=== PATIENT | male | born 1960 | race Caucasian/White ===

== ENCOUNTER 2020-01-09 22:59 | Observation (INO) | payer OTHER, SELFPAY ==
[2020-01-09 23:10] VITALS: BP 136/75; PULSE 135; RESP 16; O2SAT 94
--- NOTE | 2020-01-09 23:10 | ED.GENADULT ---
HPI - General Adult General Chief complaint: Fever Stated complaint: had a fever at home, recent surgery on L knee Time Seen by Provider: 01/09/20 23:10 History of Present Illness HPI narrative: 59-year-old gentleman with a history of hemochromatosis presents with fevers and rigors. He had a left total knee replacement yesterday morning and was doing well until 7:00 a.m. tonight when he noted chills followed by sweats followed by a fever measured at 103.6. He has no localizing symptoms. No cough, no dyspnea, no palpitations, no abdominal pain, no flank pain, no dysuria. His left knee surgical site has a wound VAC in place with no significant erythema extending past that or up the leg. Related Data Allergies Allergy/AdvReac Type Severity Reaction Status Date / Time No Known Drug Allergies Allergy Verified 01/09/20 23:39 Review of Systems Review of Systems Narrative: Pertinent positive and negative findings as per HPI Remainder of review of systems is otherwise unremarkable for ENT: No sore throat, neck pain, ear pain CV: Chest pain, palpitations, dyspnea on exertion Respiratory: Cough, wheeze, dyspnea GI: Nausea, vomiting, diarrhea, : Dysuria, hematuria, flank pain Skin: Rashes, nonhealing lesions Neuro: Syncope, dizziness, Patient History Medical History Hemochromatosis Surgical History Knee joint replacement status Social History Smoking Status: Never smoker Exam Narrative Exam Narrative: General: Diaphoretic, Able to give a complete and coherent history. Well-nourished well-developed HEENT: Moist mucous membranes, normal sclera with reactive pupils, Neck: supple Respiratory: Lungs are clear to auscultation, no wheezing no rales no rhonchi. Full and symmetrical air movement Cardiac: Rapid but regular rate and rhythm, no murmurs no bruits Abdomen: Soft nontender good bowel tones, no flank pain Skin: Warm and dry, no rashes Neurologic: Grossly neurologically intact with no obvious asymmetries or abnormalities Extremities: Left knee with surgical dressing in place. Left leg is slightly more swollen than the right leg and entirely consistent with 36 hours postop. No increased erythema or warmth. Neurovascularly intact distal to the surgical site. Right leg is unremarkable. Psych: Cooperative, appropriate insight and affect Initial Vital Signs Initial Vital Signs: Vital Signs Pulse Rate 135 H 01/09/20 23:10 Respiratory Rate 16 01/09/20 23:10 Blood Pressure 136/75 01/09/20 23:10 Pulse Oximetry 94 01/09/20 23:10 Course Orders Ordered: ED Orders 01/09/20 23:15 Complete Blood Count AUTO DIFF Stat Comprehensive Metabolic Panel Stat Lactate (Lactic Acid) Stat Procalcitonin Stat 01/09/20 23:25 XR chest 1V Stat 01/09/20 23:30 Blood Culture Stat COVID19 Stat 01/09/20 23:35 Ictotest Urine Stat Urinalysis and Microscopic Stat Acetaminophen (Acetaminophen 325 Mg Tablet) 650 mg PO Q4HR PRN PRN Reason: Fever/Mild Pain (1-3) Piperacillin/Tazobactam/Dextrose (Zosyn) 3.375 gm in 50 mls @ 100 mls/hr IV Q8H [facility] Last Admin: 01/09/20 23:39 Dose: 100 mls/hr Documented by: DEBBIE Vancomycin HCl/Dextrose (Vancomycin) 1,500 mg in 300 mls @ 200 mls/hr IV NOW ONE Stop: 01/10/20 01:00 Last Admin: 01/10/20 00:19 Dose: 200 mls/hr Documented by: Sodium Chloride (Normal Saline 0.9%) 1,000 mls @ 100 mls/hr IV CONT ABRAHAM Ibuprofen (Ibuprofen 400 Mg Tablet) 400 mg PO Q6HR PRN PRN Reason: Fever/Mild Pain (1-3) Naloxone HCl (Naloxone 0.4 Mg/Ml Vial) 0.2 mg IV Q2MIN PRN PRN Reason: Opiate Reversal Ondansetron HCl (Ondansetron 4 Mg/2 Ml Inj) 4 mg IV Q8HR PRN PRN Reason: Nausea And Vomiting Oxycodone HCl (Oxycodone Ir 5 Mg Tablet) 5 mg PO Q6HR PRN PRN Reason: Pain, Moderate (4-6) Sennosides (Sennosides 8.6 Mg Tablet) 17.2 mg PO BEDTIME [facility] Discontinued Medications Hydroxyzine Pamoate (Hydroxyzine Pamoate 25 Mg Capsule) 25 mg PO NOW ONE Stop: 01/09/20 23:25 Last Admin: 01/09/20 23:35 Dose: 25 mg Documented by: ERICH Sodium Chloride (Normal Saline 0.9%) 1,000 mls @ 1,000 mls/hr IV BOLUS ONE Stop: 01/10/20 00:48 Last Admin: 01/09/20 23:51 Dose: 1,000 mls/hr Documented by: Ibuprofen (Ibuprofen 400 Mg Tablet) 400 mg PO NOW ONE Stop: 01/09/20 23:25 Last Admin: 01/09/20 23:35 Dose: 400 mg Documented by: ERICH Oxycodone/Acetaminophen (Oxycodone/Acetaminophen 5/325 Tablet) 2 tab PO NOW ONE Stop: 01/09/20 23:25 Last Admin: 01/09/20 23:35 Dose: 2 tab Documented by: ERICH Vital Signs Vital signs: Vital Signs - 8 hr 01/09/20 23:10 01/09/20 23:20 01/09/20 23:30 Temperature 102.8 F H Pulse Rate 135 H 142 H Respiratory Rate 16 23 Blood Pressure 136/75 Pulse Oximetry 94 95 01/09/20 23:49 01/10/20 00:00 Temperature Pulse Rate 129 H 129 H Respiratory Rate 22 19 Blood Pressure 147/74 H 143/73 H Pulse Oximetry 94 95 Medical Decision Making Medical Records Medical records reviewed: Yes I reviewed the patient's medical records. Lab Data Lab results reviewed: Yes I reviewed the patient's lab results. Result diagrams: 01/09/20 23:15 01/09/20 23:15 Labs: Lab Results 01/09/20 01/09/20 01/09/20 Range/Units 23:15 23:15 23:15 WBC 8.9 (4.5-11.0) X10^3/uL RBC 4.15 L (4.5-5.9) X10^6/uL Hgb 13.8 (13.5-17.5) g/dL Hct 40.3 L (41-53) % MCV 97.1 (80-100) fL MCH 33.2 (26-34) PG MCHC 34.2 (30-36) % RDW 13.3 (11.6-14.8) % Plt Count 159 (150-400) X10^3/uL Neut % (Auto) 92.0 H (50-75) % Lymph % (Auto) 1.6 L (25-40) % [place] % (Auto) 4.5 (3-14) % Eos % (Auto) 1.5 L (2-4) % Baso % (Auto) 0.4 (0-2) % Neut # (Auto) 8200 H (6426-2184) /uL Lymph # (Auto) 100 L (8112-9128) /uL [place] # (Auto) 400 (0-900) /uL Eos # (Auto) 100 (0-450) /uL Baso # (Auto) 0 (0-100) /uL Sodium 134 L (137-145) mmol/L Potassium 3.6 (3.4-5.1) mmol/L Chloride 104 (98-107) mmol/L Carbon Dioxide 25 (22-32) mmol/L BUN 15 (9-20) mg/dL Creatinine 1.02 (0.66-1.25) mg/dL Estimated GFR > 60.0 (>60) mL/min BUN/Creatinine Ratio 14.7 (6-22) Glucose 204 H (80-110) mg/dL Lactate (0.7-2.1) mmol/L Calcium 9.0 (8.4-10.2) mg/dL Total Bilirubin 1.0 (0.2-1.3) mg/dL AST 30 (17-59) IU/L ALT 31 (<50) IU/L Alkaline Phosphatase 64 (38-126) U/L Total Protein 7.3 (6.3-8.2) g/dL Albumin 3.9 (3.5-5.0) g/dL Globulin 3.4 (1.7-4.1) g/dL Albumin/Globulin Ratio 1.1 (1.0-2.8) Procalcitonin 0.32 (<0.5) ng/mL Urine Color Urine Appearance Urine pH (4.5-8.0) Ur Specific [place] (1.000-1.035) Urine Protein (Negative) Urine Glucose (UA) (Negative) g/dL Urine Ketones (NEGATIVE) Urine Occult Blood (Negative) Urine Nitrate (Negative) Urine Bilirubin (NEGATIVE) Ur Bilirubin Confirm (Negative) Urine Urobilinogen (0.2) E.U./dL Ur Leukocyte Esterase (NEGATIVE) Urine RBC (0-5/HPF) Urine WBC (0-5/HPF) Ur Squamous Epith Cells (0-5/HPF) Urine Bacteria (None) Hyaline Casts (None) Granular Casts (None) Urine Mucus (Negative) Ur Culture Indicated? COVID-19 PCR (Negative) 01/09/20 01/09/20 01/09/20 Range/Units 23:15 23:30 23:35 WBC (4.5-11.0) X10^3/uL RBC (4.5-5.9) X10^6/uL Hgb (13.5-17.5) g/dL Hct (41-53) % MCV (80-100) fL MCH (26-34) PG MCHC (30-36) % RDW (11.6-14.8) % Plt Count (150-400) X10^3/uL Neut % (Auto) (50-75) % Lymph % (Auto) (25-40) % [place] % (Auto) (3-14) % Eos % (Auto) (2-4) % Baso % (Auto) (0-2) % Neut # (Auto) (4757-5271) /uL Lymph # (Auto) (0077-5662) /uL [place] # (Auto) (0-900) /uL Eos # (Auto) (0-450) /uL Baso # (Auto) (0-100) /uL Sodium (137-145) mmol/L Potassium (3.4-5.1) mmol/L Chloride (98-107) mmol/L Carbon Dioxide (22-32) mmol/L BUN (9-20) mg/dL Creatinine (0.66-1.25) mg/dL Estimated GFR (>60) mL/min BUN/Creatinine Ratio (6-22) Glucose (80-110) mg/dL Lactate 1.9 (0.7-2.1) mmol/L Calcium (8.4-10.2) mg/dL Total Bilirubin (0.2-1.3) mg/dL AST (17-59) IU/L ALT (<50) IU/L Alkaline Phosphatase (38-126) U/L Total Protein (6.3-8.2) g/dL Albumin (3.5-5.0) g/dL Globulin (1.7-4.1) g/dL Albumin/Globulin Ratio (1.0-2.8) Procalcitonin (<0.5) ng/mL Urine Color [place] Urine Appearance Clear Urine pH 5.0 (4.5-8.0) Ur Specific [place] 1.025 (1.000-1.035) Urine Protein 2+ H (Negative) Urine Glucose (UA) Negative (Negative) g/dL Urine Ketones 1+ H (NEGATIVE) Urine Occult Blood Trace-lysed (Negative) Urine Nitrate Negative (Negative) Urine Bilirubin 1+ H (NEGATIVE) Ur Bilirubin Confirm Negative (Negative) Urine Urobilinogen 0.2 (0.2) E.U./dL Ur Leukocyte Esterase Negative (NEGATIVE) Urine RBC None seen (0-5/HPF) Urine WBC 1-5/hpf (0-5/HPF) Ur Squamous Epith Cells 0-1 /hpf (0-5/HPF) Urine Bacteria None seen (None) Hyaline Casts 1-5/lpf (None) Granular Casts 0-1/lpf (None) Urine Mucus 4+ H (Negative) Ur Culture Indicated? Cult not indicated COVID-19 PCR Negative (Negative) MDM Narrative Medical decision making narrative: 59-year-old gentleman with fevers and rigors now for approximately 5 hours. He is 36 hours post left knee replacement. Surgical site itself looks like it is healing nicely. Urine is unremarkable as is chest x-ray, COVID remains negative. He started on Zosyn and vancomycin after urine and blood cultures were obtained. He will be admitted to the medicine service with ortho consulting. Diagnosis of fever 36 hours postop with no identified source, no pneumonia, no atelectasis, no urinary tract infection, no antibiotics or other medications to suggest drug-related fever. In setting of total joint replacement IV antibiotics until further evaluation and source of fever can be identified will be appropriate. At this time, there is no evidence of acute sepsis. He has been taking aspirin postop for PE prevention. He is tachycardic however this is coming down with fever reduction and fluids. He has complained of no palpitations or hypoxia. It would be difficult to explain fever chills and rigors within hours of an acute PE and other symptoms are much more consistent with infection. Spoke with Dr Domínguez. Will see patient in the am. Discussed with ANDERSON Reddy hosptialist. She will review with Dr Feliz as well. Discharge Plan Departure Admit Date/Time: 01/10/20 00:27 Admit Provider: Lesa Vences
[2020-01-09 23:20] VITALS: TEMP 39.3; BMI 39.1
--- NOTE | 2020-01-09 23:25 | DI.RAD.S_ITS ---
PROCEDURE: XR CHEST 1V INDICATIONS: fever TECHNIQUE: One view of the chest was acquired. COMPARISON: [facility], CT, CT ANGIO CHEST PE PROTOCOL, 01/10/2020, 3:11. FINDINGS: Surgical changes and devices: None. Lungs and pleura: An incomplete inspiratory result is noted, causing a crowded appearance to the lung markings. No focal infiltrates are seen. No pneumothorax or significant pleural effusions are seen. Mediastinum: Mediastinal contours appear normal. Heart size is normal. Bones and chest wall: No suspicious bony lesions. Age-appropriate bony degenerative changes are seen. Overlying soft tissues appear unremarkable. IMPRESSION: Portable chest within normal limits. Dictated by: Hank Page M.D. on 01/10/2020 at 8:18 Approved by: Hank Page M.D. on 01/10/2020 at 8:19
[2020-01-09 23:30] VITALS: PULSE 142; RESP 23; O2SAT 95
[2020-01-09] MEDS: hydrOXYzine pamoate 25 MG CAPSULE PO (23:35)
[2020-01-09] MEDS: OXYCODONE/ACETAMINOPHEN 5/325 TABLET 2 TAB PO (23:35)
[2020-01-09] MEDS: IBUPROFEN 400 MG TABLET PO (23:35)
[2020-01-09 23:36] LABS: Add Manual Diff / Slide Review NO; Basophils Absolute Auto 0 /uL (0-100); Basophils Percent Auto 0.4 % (0-2); Eosinophils Absolute Auto 100 /uL (0-450); Eosinophils Percent Auto 1.5 % (2-4); Hematocrit 40.3 % (41-53); Hemoglobin 13.8 g/dL (13.5-17.5); Lymphocytes Absolute Auto 100 /uL (1100-4500); Lymphocytes Percent Auto 1.6 % (25-40); Mean Corpuscular HGB Conc 34.2 % (30-36); Mean Corpuscular Hemoglobin 33.2 PG (26-34); Mean Corpuscular Volume 97.1 fL (80-100); Monocytes Absolute Auto 400 /uL (0-900); Monocytes Percent Auto 4.5 % (3-14); Neutrophils Absolute Auto 8200 /uL (1500-7000); Platelet Count 159 X10^3/uL (150-400); Red Blood Cell Count 4.15 X10^6/uL (4.5-5.9); Red Cell Distribution Width 13.3 % (11.6-14.8); White Blood Cell Count 8.9 X10^3/uL (4.5-11.0)
[2020-01-09] MEDS: PIPERACILLIN-TAZO 3.375 GM/50 ML FROZ.PIGGY IV (23:39)
[2020-01-09 23:40] LABS: Lactate (Lactic Acid) 1.9 mmol/L (0.7-2.1)
[2020-01-09 23:41] LABS: Appearance Urine UA CLEAR; Bacteria Urine None Seen; Bilirubin Urine UA 1+ (NEGATIVE); Glucose Urine UA NEGATIVE (Negative); Ketones Urine UA 1+ (NEGATIVE); Leukocyte Esterase Urine UA NEGATIVE (NEGATIVE); Nitrite Urine UA NEGATIVE (Negative); Occult Blood Urine UA TRACE-LYSED (Negative); Protein Urine UA 2+ (Negative); RBC Urine None Seen (0-5/HPF); Specific Gravity Urine UA 1.025 (1.000-1.035); Urobilinogen Urine UA 0.2 E.U./dL (0.2)
[2020-01-09 23:42] LABS: Color Urine UA Amber
[2020-01-09 23:43] LABS: Alanine Aminotransferase 31 IU/L (<50); Albumin 3.9 g/dL (3.5-5.0); Albumin Globulin Ratio 1.1 (1.0-2.8); Alkaline Phosphatase 64 U/L (38-126); Aspartate Aminotransferase 30 IU/L (17-59); BUN Creatinine Ratio 14.7 (6-22); Blood Urea Nitrogen 15 mg/dL (9-20); Carbon Dioxide 25 mmol/L (22-32); Chloride 104 mmol/L (98-107); Estimated Glomerular Filt Rate > 60.0 mL/min (>60); Globulin 3.4 g/dL (1.7-4.1); Glucose 204 mg/dL (80-110); HEMOLYSIS < 15 (0-50); Potassium 3.6 mmol/L (3.4-5.1); Sodium 134 mmol/L (137-145); Total Protein 7.3 g/dL (6.3-8.2)
[2020-01-09 23:49] VITALS: BP 147/74; PULSE 129; RESP 22; O2SAT 94
[2020-01-09] MEDS: SODIUM CHLORIDE 0.9% 1,000 ML 1000 ML IV (23:51)
[2020-01-09 23:56] LABS: COVID19 -Nasal RAPID Negative (Negative)
[2020-01-09 23:59] LABS: Procalcitonin 0.32 ng/mL (<0.5)
[2020-01-10] VITALS: BP 143/73; PULSE 129; RESP 19; O2SAT 95
[2020-01-10 00:07] LABS: Ictotest Urine Negative (Negative); Squamous Epithelial Cell Urine 0-1 /HPF (0-5/HPF); WBC Urine 1-5/HPF (0-5/HPF)
[2020-01-10 00:09] LABS: Culture Indicated Urine Cult Not Indicated; Granular Casts Urine 0-1/LPF; Hyaline Casts Urine 1-5/LPF; Mucus Urine 4+ (Negative)
[2020-01-10] MEDS: VANCOMYCIN 1,500 MG/300 ML PIGGYBACK 200 MG IV (00:19)
[2020-01-10 00:30] VITALS: BP 146/77; PULSE 126; RESP 20; TEMP 38.2; O2SAT 95
[2020-01-10 00:33] VITALS: BMI 40.1
[2020-01-10 00:50] VITALS: BP 150/88; PULSE 115; RESP 18; TEMP 37.6; O2SAT 97
[2020-01-10 00:57] LABS: Creatine Kinase 249 U/L (55-170)
[2020-01-10 00:59] LABS: D Dimer 2149 ng/mL (<230)
--- NOTE | 2020-01-10 01:09 | PC.NURSE ---
0050 Patient transferred to unit via stretcher/bed in stable condition. The patient is alert and oriented x4. There is expected swelling and tenderness to the left knee s/p TKA. Normal saline is running at 100mL/h and Vancomycin at 200mL/h. Lung sounds are clear. Pt transferred to unit bed via [id number]. Bed alarm is on. No s/sx of distress.
[2020-01-10 01:10] LABS: Troponin I < 0.012 ng/mL (0.01-0.034)
[2020-01-10 01:14] LABS: CKMB % Relative Index 0.1 % (1.5-5.0); Creatine Kinase MB < 0.22 ng/mL (<2.37)
[2020-01-10 01:40] LABS: Erythrocyte Sedimentation Rate 22 MM/HR (0-15)
[2020-01-10 01:42] LABS: C-Reactive Protein Quant 20.8 mg/dL (<1.0)
--- NOTE | 2020-01-10 01:48 | DI.CT.S_ITS ---
PROCEDURE: CT ANGIO CHEST PE PROTOCOL INDICATIONS: elevated D-dimer TECHNIQUE: After the administration of intravenous contrast, 2 mm thick sections acquired from the pulmonary apices to the posterior costophrenic angles. 3-dimensional maximum intensity projection (MIP) coronal and sagittal reformats were then acquired through the thorax. For radiation dose reduction, the following was used: automated exposure control, adjustment of mA and/or kV according to patient size. COMPARISON: [facility], , XR CHEST 1V, 01/09/2020, 23:33. FINDINGS: Image quality: Excellent. Pulmonary arteries: Pulmonary arteries are normal in size, and demonstrate no intraluminal filling defects to suggest central pulmonary embolism. Lungs and pleura: No focal infiltrates are seen. A calcified granuloma can be seen laterally involving the left upper lobe, as on series 5, image 132. An additional calcified granuloma can be seen involving the right costophrenic angle, as on series 4, image 109. No pleural effusions or pneumothorax. Central and peripheral airways are patent. Mediastinum: Heart size is normal, without pericardial effusion. No mediastinal or hilar adenopathy. Calcified mediastinal lymph nodes are seen. Thoracic aorta is normal in caliber and enhancement. Esophagus is normal in caliber, without hiatal hernia. Bones and chest wall: No suspicious bony lesions. Age-appropriate bony degenerative changes are seen. Ribs and thoracic spine appear intact throughout. Thyroid gland demonstrates no significant abnormality. No axillary or supraclavicular adenopathy. Abdomen: Diffuse fatty liver infiltration is noted. Gallstones may be present, yet are not well seen. Calcified splenic granulomas are seen. The visualized portions of the upper abdominal structures are otherwise unremarkable for imaging technique. IMPRESSION: Negative for pulmonary embolism. Incidental note is made of: Prior granulomatous exposure. Fatty liver infiltration Potential gallstones Note: No significant discrepancy from the preliminary report. Dictated by: Hank Page M.D. on 01/10/2020 at 7:34 Approved by: Hank Page M.D. on 01/10/2020 at 7:37
--- NOTE | 2020-01-10 01:53 | PM.HP.1 ---
History of Present Illness History of Present Illness Date Patient Seen: 01/10/20 Time Patient Seen: 01:15 Chief complaint: had a fever at home, recent surgery on L knee Narrative: Jose Tapia is a 59 y.o. male with hemachromatosis who is POD#1 left total knee arthroplasty by Dr. Staton. He was uneventfully recovering at home when he developed a fever and rigors. Initially his temp was 100 degrees and when he took his temperature again, it estephania to 103. He contacted the on-call surgeon at [facility] and they instructed him to present to [place] [facility] for further evaluation. He has been adhering to an ibuprofen and tylenol and oxycodone pain control regimen and takes aspirin 81 mg po bid for anticoagulation. He denies chest pain, shortness of breath, nausea or vomiting, abdominal or inguinal pain, or calf pain. Denies a history of a blood clot. In the ED, he presented with a temperature of 102.8. Currently his temp is 99.6 there is 150/88, heart rate 115, respiratory rate 18, oxygen saturation of 97% on room air, he weighs 109.5 kg with BMI 40.1. WBC is 8.9, RBC 4.15, hemoglobin 13.8, hematocrit 40.3, platelet count 159, he does have elevated neutrophils 8200, ESR is is elevated at 22, D-dimer is elevated at 2149, sodium 134, glucose 204, lactate 1.9, liver enzymes within normal limits, total CK is 249, CK-MB is 0.1, troponin is within normal limits, CRP is 20.8, procalcitonin was 0.32, UA is negative for UTI an COVID-19 PCR is negative. He was administered a dose of IV vancomycin and pipercillin tazobactam in the ED. Patient History Medical History Hemochromatosis Surgical History Knee joint replacement status Family & Social History Family History (Updated 01/10/20 @ 02:18 by ANDERSON Leyva) Mother Tobacco use COPD (chronic obstructive pulmonary disease) Father Tobacco use CAD (coronary artery disease) Hx of heart bypass surgery COPD (chronic obstructive pulmonary disease) Brother Hemochromatosis Social History: household members spouse,children,other Prior Living Arrangements House Safety & Behavioral: Feels Safe in Current Yes Environment Been Physically Hurt or No Threatened By a Person Suicidal Ideation Description None Suicide Plan Description No Plan Tobacco & Substance use: Smoking Status Never smoker alcohol intake current, though very little X 2 months alcohol intake frequency other Substance Use Type does not use Meds Home Medications and Allergies Home Medications Medication Instructions Recorded Confirmed Type aspirin [Adult Aspirin] 81 mg PO DAILY 01/10/20 01/10/20 History ibuprofen 400 mg PO Q6H PRN 01/10/20 01/10/20 History Allergies Allergy/AdvReac Type Severity Reaction Status Date / Time No Known Drug Allergies Allergy Verified 01/09/20 23:39 Review of Systems Review of Systems ROS: Yes All systems reviewed with the patient and are negative except as otherwise documented Exam Vital Signs (past 8 hours): - 01/09/20 23:10 01/09/20 23:20 01/09/20 23:30 Temperature 102.8 F H Pulse Rate 135 H 142 H Respiratory Rate 16 23 Blood Pressure 136/75 Pulse Oximetry 94 95 01/09/20 23:49 01/10/20 00:00 01/10/20 00:30 Temperature 100.8 F H Pulse Rate 129 H 129 H 126 H Respiratory Rate 22 19 20 Blood Pressure 147/74 H 143/73 H 146/77 H Pulse Oximetry 94 95 95 01/10/20 00:50 Temperature 99.6 F Pulse Rate 115 H Respiratory Rate 18 Blood Pressure 150/88 H Pulse Oximetry 97 Oxygen Delivery Method Room Air Oxygen Flow Rate 0 Narrative Exam Narrative: Gen: Alert, oriented, morbidly obese 59 y.o. male, NAD HEENT: normocephalic, atraumatic, conjunctiva clear, sclera non-icteric, oral mucosa pink and moist Neck: supple, full ROM, no JVD, trachea is midline Resp: Lungs CTA, non-labored breathing CV: RRR, no murmur or rubs Abd: obese, distended, soft, non-tender, normoactive BTs Skin: no lesions or rashes, dry and intact Neuro: Alert and oriented X 4 w/no focal deficits. Speech clear and coherent. Extremities: left knee has a pressure dressing, no drainage seen, is ambulatory, negative Belkys?s sign Psyche: very pleasant, normal mood and affect. Objective Labs Result Diagrams: 01/09/20 23:15 01/09/20 23:15 Labs: Laboratory Results - last 24 hr 01/09/20 01/09/20 01/09/20 23:15 23:15 23:15 WBC 8.9 RBC 4.15 L Hgb 13.8 Hct 40.3 L MCV 97.1 MCH 33.2 MCHC 34.2 RDW 13.3 Plt Count 159 Neut % (Auto) 92.0 H Lymph % (Auto) 1.6 L [place] % (Auto) 4.5 Eos % (Auto) 1.5 L Baso % (Auto) 0.4 Neut # (Auto) 8200 H Lymph # (Auto) 100 L [place] # (Auto) 400 Eos # (Auto) 100 Baso # (Auto) 0 ESR D-Dimer Sodium 134 L Potassium 3.6 Chloride 104 Carbon Dioxide 25 BUN 15 Creatinine 1.02 Estimated GFR > 60.0 BUN/Creatinine Ratio 14.7 Glucose 204 H Lactate Calcium 9.0 Total Bilirubin 1.0 AST 30 ALT 31 Alkaline Phosphatase 64 Total Creatine Kinase CK-MB (CK-2) CK-MB (CK-2) Rel Index Troponin I C-Reactive Protein Total Protein 7.3 Albumin 3.9 Globulin 3.4 Albumin/Globulin Ratio 1.1 Procalcitonin 0.32 Urine Color Urine Appearance Urine pH Ur Specific [place] Urine Protein Urine Glucose (UA) Urine Ketones Urine Occult Blood Urine Nitrate Urine Bilirubin Ur Bilirubin Confirm Urine Urobilinogen Ur Leukocyte Esterase Urine RBC Urine WBC Ur Squamous Epith Cells Urine Bacteria Hyaline Casts Granular Casts Urine Mucus Ur Culture Indicated? COVID-19 PCR 01/09/20 01/09/20 01/09/20 23:15 23:15 23:15 WBC RBC Hgb Hct MCV MCH MCHC RDW Plt Count Neut % (Auto) Lymph % (Auto) [place] % (Auto) Eos % (Auto) Baso % (Auto) Neut # (Auto) Lymph # (Auto) [place] # (Auto) Eos # (Auto) Baso # (Auto) ESR D-Dimer 2149 H Sodium Potassium Chloride Carbon Dioxide BUN Creatinine Estimated GFR BUN/Creatinine Ratio Glucose Lactate 1.9 Calcium Total Bilirubin AST ALT Alkaline Phosphatase Total Creatine Kinase 249 H CK-MB (CK-2) < 0.22 CK-MB (CK-2) Rel Index 0.1 L Troponin I < 0.012 C-Reactive Protein Total Protein Albumin Globulin Albumin/Globulin Ratio Procalcitonin Urine Color Urine Appearance Urine pH Ur Specific [place] Urine Protein Urine Glucose (UA) Urine Ketones Urine Occult Blood Urine Nitrate Urine Bilirubin Ur Bilirubin Confirm Urine Urobilinogen Ur Leukocyte Esterase Urine RBC Urine WBC Ur Squamous Epith Cells Urine Bacteria Hyaline Casts Granular Casts Urine Mucus Ur Culture Indicated? COVID-19 PCR 01/09/20 01/09/20 01/09/20 23:15 23:15 23:30 WBC RBC Hgb Hct MCV MCH MCHC RDW Plt Count Neut % (Auto) Lymph % (Auto) [place] % (Auto) Eos % (Auto) Baso % (Auto) Neut # (Auto) Lymph # (Auto) [place] # (Auto) Eos # (Auto) Baso # (Auto) ESR 22 H D-Dimer Sodium Potassium Chloride Carbon Dioxide BUN Creatinine Estimated GFR BUN/Creatinine Ratio Glucose Lactate Calcium Total Bilirubin AST ALT Alkaline Phosphatase Total Creatine Kinase CK-MB (CK-2) CK-MB (CK-2) Rel Index Troponin I C-Reactive Protein 20.8 H Total Protein Albumin Globulin Albumin/Globulin Ratio Procalcitonin Urine Color Urine Appearance Urine pH Ur Specific [place] Urine Protein Urine Glucose (UA) Urine Ketones Urine Occult Blood Urine Nitrate Urine Bilirubin Ur Bilirubin Confirm Urine Urobilinogen Ur Leukocyte Esterase Urine RBC Urine WBC Ur Squamous Epith Cells Urine Bacteria Hyaline Casts Granular Casts Urine Mucus Ur Culture Indicated? COVID-19 PCR Negative 01/09/20 23:35 WBC RBC Hgb Hct MCV MCH MCHC RDW Plt Count Neut % (Auto) Lymph % (Auto) [place] % (Auto) Eos % (Auto) Baso % (Auto) Neut # (Auto) Lymph # (Auto) [place] # (Auto) Eos # (Auto) Baso # (Auto) ESR D-Dimer Sodium Potassium Chloride Carbon Dioxide BUN Creatinine Estimated GFR BUN/Creatinine Ratio Glucose Lactate Calcium Total Bilirubin AST ALT Alkaline Phosphatase Total Creatine Kinase CK-MB (CK-2) CK-MB (CK-2) Rel Index Troponin I C-Reactive Protein Total Protein Albumin Globulin Albumin/Globulin Ratio Procalcitonin Urine Color Chelsey Urine Appearance Clear Urine pH 5.0 Ur Specific [place] 1.025 Urine Protein 2+ H Urine Glucose (UA) Negative Urine Ketones 1+ H Urine Occult Blood Trace-lysed Urine Nitrate Negative Urine Bilirubin 1+ H Ur Bilirubin Confirm Negative Urine Urobilinogen 0.2 Ur Leukocyte Esterase Negative Urine RBC None seen Urine WBC 1-5/hpf Ur Squamous Epith Cells 0-1 /hpf Urine Bacteria None seen Hyaline Casts 1-5/lpf Granular Casts 0-1/lpf Urine Mucus 4+ H Ur Culture Indicated? Cult not indicated COVID-19 PCR Assessment & Plan Assessment & Plan narrative: Jose Tapia will be admitted for fever of unknown origin and Orthopedics has agreed to consult. Early postoperative fever of unknown origin, acute and present on admission -Most suspicious on the differential is an early surgical site infection, pneumonia, UTI or infections pre-dating the surgery. -Lower index of suspicion of an NV, PE or DVT. Will proceed with a CTA of the chest. -Will keep in observation to monitor and treat fevers as needed -D-dimer is elevated, however unknown if natural reaction to surgery -Troponin is negative for an acute coronary syndrome -blood cultures are pending -could also be indicative of a surgically induced inflammation. ESR and CRP were both elevated. -Will continue empiric antibiotic coverage though the morning of 01/09 with IV pipercillin tazobactam and vancomycin. Familial hemachromatosis, chronic -Patient undergoes phlebotomy every few months VTE prophylaxis: Wells risk score: 3, intermediate Due to recent surgery, unable to have strong pharmacological DVT prophylaxis, he is ordered for right leg SCD. Consults: Dr. Domínguez, Orthopedic Surgery consult and involvement is appreciated. Patient is observation status as his stay is not likely to exceed 2 midnights. FEN: IV NS at 100 ml/hour, low sodium diet, BMP and magnesium in the am. Dispo: unknown at this time Code Status: full code as discussed with patient Scores Wells' Criteria for PE Clinical signs and symptoms of DVT: No PE is #1 Dx or equally likely: No Heart rate > 100: Yes Immobilization at least 3 days or surg in previous 4 weeks: Yes History of PE or DVT: No Hemoptysis: No Malignancy w/Treatment within 6 months or palliative: No Wells' PE Score total: 3.0
[2020-01-10 04:10] VITALS: TEMP 37
[2020-01-10] MEDS: SODIUM CHLORIDE 0.9% 1,000 ML 100 ML IV (04:11)
[2020-01-10] MEDS: ACETAMINOPHEN 325 MG TABLET 650 MG PO ×2 (04:13→08:46)
[2020-01-10] MEDS: IBUPROFEN 400 MG TABLET PO ×2 (04:13→12:15)
[2020-01-10 05:41] LABS: Add Manual Diff / Slide Review NO; Basophils Absolute Auto 200 /uL (0-100); Basophils Percent Auto 1.4 % (0-2); Eosinophils Absolute Auto 200 /uL (0-450); Eosinophils Percent Auto 1.8 % (2-4); Hematocrit 37.3 % (41-53); Hemoglobin 12.9 g/dL (13.5-17.5); Lymphocytes Absolute Auto 200 /uL (1100-4500); Lymphocytes Percent Auto 2.2 % (25-40); Mean Corpuscular HGB Conc 34.5 % (30-36); Mean Corpuscular Hemoglobin 33.6 PG (26-34); Mean Corpuscular Volume 97.3 fL (80-100); Monocytes Absolute Auto 800 /uL (0-900); Monocytes Percent Auto 7.2 % (3-14); Neutrophils Absolute Auto 9200 /uL (1500-7000); Neutrophils Percent Auto 87.4 % (50-75); Platelet Count 156 X10^3/uL (150-400); Red Blood Cell Count 3.84 X10^6/uL (4.5-5.9); Red Cell Distribution Width 13.4 % (11.6-14.8); White Blood Cell Count 10.5 X10^3/uL (4.5-11.0)
[2020-01-10 05:49] LABS: Lactate (Lactic Acid) 1.2 mmol/L (0.7-2.1); Lipase 20 U/L (23-300)
[2020-01-10] MEDS: PIPERACILLIN-TAZO 3.375 GM/50 ML FROZ.PIGGY IV (05:51)
[2020-01-10 05:57] LABS: Blood Urea Nitrogen 14 mg/dL (9-20); Calcium 8.6 mg/dL (8.4-10.2); Carbon Dioxide 27 mmol/L (22-32); Chloride 101 mmol/L (98-107); Estimated Glomerular Filt Rate > 60.0 mL/min (>60); Glucose 123 mg/dL (80-110); HEMOLYSIS < 15 (0-50); Magnesium 1.8 mg/dL (1.6-2.3); Potassium 3.9 mmol/L (3.4-5.1); Sodium 132 mmol/L (137-145)
[2020-01-10 06:10] LABS: Procalcitonin 1.29 ng/mL (<0.5)
[2020-01-10 07:40] VITALS: BP 129/78; PULSE 101; RESP 16; TEMP 36.6; O2SAT 95
[2020-01-10] MEDS: OXYCODONE IR 5 MG TABLET PO (08:46)
--- NOTE | 2020-01-10 09:12 | P.PN_ITS ---
Subjective Subjective Date Patient Seen: 01/10/20 Time Patient Seen: 09:12 Interval history: The patient reports he feels much better this morning. He has no sensation of chills or fever. Pain is well controlled in the knee. Exam Vital Signs (past 8 hours): - 01/10/20 04:10 01/10/20 07:40 Temperature 98.6 F 97.8 F Pulse Rate 101 H Respiratory Rate 16 Blood Pressure 129/78 Pulse Oximetry 95 Oxygen Delivery Method Room Air Oxygen Flow Rate 0 Narrative Exam Narrative: Left knee wound is without erythema or drainage. There is the expected postoperative swelling 2 days after total knee replacement. Calf is soft. Light touch and motion are intact in the left lower extremity. Objective Labs Result Diagrams: 01/10/20 05:20 01/10/20 05:20 Labs: Laboratory Results - last 24 hr 01/09/20 01/09/20 01/09/20 23:15 23:15 23:15 WBC 8.9 RBC 4.15 L Hgb 13.8 Hct 40.3 L MCV 97.1 MCH 33.2 MCHC 34.2 RDW 13.3 Plt Count 159 Neut % (Auto) 92.0 H Lymph % (Auto) 1.6 L [place] % (Auto) 4.5 Eos % (Auto) 1.5 L Baso % (Auto) 0.4 Neut # (Auto) 8200 H Lymph # (Auto) 100 L [place] # (Auto) 400 Eos # (Auto) 100 Baso # (Auto) 0 ESR D-Dimer Sodium 134 L Potassium 3.6 Chloride 104 Carbon Dioxide 25 BUN 15 Creatinine 1.02 Estimated GFR > 60.0 BUN/Creatinine Ratio 14.7 Glucose 204 H Lactate Calcium 9.0 Magnesium Total Bilirubin 1.0 AST 30 ALT 31 Alkaline Phosphatase 64 Total Creatine Kinase CK-MB (CK-2) CK-MB (CK-2) Rel Index Troponin I C-Reactive Protein Total Protein 7.3 Albumin 3.9 Globulin 3.4 Albumin/Globulin Ratio 1.1 Lipase Procalcitonin 0.32 Urine Color Urine Appearance Urine pH Ur Specific [place] Urine Protein Urine Glucose (UA) Urine Ketones Urine Occult Blood Urine Nitrate Urine Bilirubin Ur Bilirubin Confirm Urine Urobilinogen Ur Leukocyte Esterase Urine RBC Urine WBC Ur Squamous Epith Cells Urine Bacteria Hyaline Casts Granular Casts Urine Mucus Ur Culture Indicated? COVID-19 PCR 1101/09/20 01/09/20 23:15 23:15 23:15 WBC RBC Hgb Hct MCV MCH MCHC RDW Plt Count Neut % (Auto) Lymph % (Auto) [place] % (Auto) Eos % (Auto) Baso % (Auto) Neut # (Auto) Lymph # (Auto) [place] # (Auto) Eos # (Auto) Baso # (Auto) ESR D-Dimer 2149 H Sodium Potassium Chloride Carbon Dioxide BUN Creatinine Estimated GFR BUN/Creatinine Ratio Glucose Lactate 1.9 Calcium Magnesium Total Bilirubin AST ALT Alkaline Phosphatase Total Creatine Kinase 249 H CK-MB (CK-2) < 0.22 CK-MB (CK-2) Rel Index 0.1 L Troponin I < 0.012 C-Reactive Protein Total Protein Albumin Globulin Albumin/Globulin Ratio Lipase Procalcitonin Urine Color Urine Appearance Urine pH Ur Specific [place] Urine Protein Urine Glucose (UA) Urine Ketones Urine Occult Blood Urine Nitrate Urine Bilirubin Ur Bilirubin Confirm Urine Urobilinogen Ur Leukocyte Esterase Urine RBC Urine WBC Ur Squamous Epith Cells Urine Bacteria Hyaline Casts Granular Casts Urine Mucus Ur Culture Indicated? COVID-19 PCR 01/09/20 01/09/20 01/09/20 23:15 23:15 23:30 WBC RBC Hgb Hct MCV MCH MCHC RDW Plt Count Neut % (Auto) Lymph % (Auto) [place] % (Auto) Eos % (Auto) Baso % (Auto) Neut # (Auto) Lymph # (Auto) [place] # (Auto) Eos # (Auto) Baso # (Auto) ESR 22 H D-Dimer Sodium Potassium Chloride Carbon Dioxide BUN Creatinine Estimated GFR BUN/Creatinine Ratio Glucose Lactate Calcium Magnesium Total Bilirubin AST ALT Alkaline Phosphatase Total Creatine Kinase CK-MB (CK-2) CK-MB (CK-2) Rel Index Troponin I C-Reactive Protein 20.8 H Total Protein Albumin Globulin Albumin/Globulin Ratio Lipase Procalcitonin Urine Color Urine Appearance Urine pH Ur Specific [place] Urine Protein Urine Glucose (UA) Urine Ketones Urine Occult Blood Urine Nitrate Urine Bilirubin Ur Bilirubin Confirm Urine Urobilinogen Ur Leukocyte Esterase Urine RBC Urine WBC Ur Squamous Epith Cells Urine Bacteria Hyaline Casts Granular Casts Urine Mucus Ur Culture Indicated? COVID-19 PCR Negative 01/09/20 01/10/20 01/10/20 23:35 05:20 05:20 WBC 10.5 RBC 3.84 L Hgb 12.9 L Hct 37.3 L MCV 97.3 MCH 33.6 MCHC 34.5 RDW 13.4 Plt Count 156 Neut % (Auto) 87.4 H Lymph % (Auto) 2.2 L [place] % (Auto) 7.2 Eos % (Auto) 1.8 L Baso % (Auto) 1.4 Neut # (Auto) 9200 H Lymph # (Auto) 200 L [place] # (Auto) 800 Eos # (Auto) 200 Baso # (Auto) 200 H ESR D-Dimer Sodium 132 L Potassium 3.9 Chloride 101 Carbon Dioxide 27 BUN 14 Creatinine 1.00 Estimated GFR > 60.0 BUN/Creatinine Ratio 14.0 Glucose 123 H Lactate Calcium 8.6 Magnesium 1.8 Total Bilirubin AST ALT Alkaline Phosphatase Total Creatine Kinase CK-MB (CK-2) CK-MB (CK-2) Rel Index Troponin I C-Reactive Protein Total Protein Albumin Globulin Albumin/Globulin Ratio Lipase Procalcitonin Urine Color [place] Urine Appearance Clear Urine pH 5.0 Ur Specific [place] 1.025 Urine Protein 2+ H Urine Glucose (UA) Negative Urine Ketones 1+ H Urine Occult Blood Trace-lysed Urine Nitrate Negative Urine Bilirubin 1+ H Ur Bilirubin Confirm Negative Urine Urobilinogen 0.2 Ur Leukocyte Esterase Negative Urine RBC None seen Urine WBC 1-5/hpf Ur Squamous Epith Cells 0-1 /hpf Urine Bacteria None seen Hyaline Casts 1-5/lpf Granular Casts 0-1/lpf Urine Mucus 4+ H Ur Culture Indicated? Cult not indicated COVID-19 PCR 01/10/20 01/10/20 01/10/20 05:20 05:20 05:20 WBC RBC Hgb Hct MCV MCH MCHC RDW Plt Count Neut % (Auto) Lymph % (Auto) [place] % (Auto) Eos % (Auto) Baso % (Auto) Neut # (Auto) Lymph # (Auto) [place] # (Auto) Eos # (Auto) Baso # (Auto) ESR D-Dimer Sodium Potassium Chloride Carbon Dioxide BUN Creatinine Estimated GFR BUN/Creatinine Ratio Glucose Lactate 1.2 Calcium Magnesium Total Bilirubin AST ALT Alkaline Phosphatase Total Creatine Kinase CK-MB (CK-2) CK-MB (CK-2) Rel Index Troponin I C-Reactive Protein Total Protein Albumin Globulin Albumin/Globulin Ratio Lipase 20 L Procalcitonin 1.29 H Urine Color Urine Appearance Urine pH Ur Specific [place] Urine Protein Urine Glucose (UA) Urine Ketones Urine Occult Blood Urine Nitrate Urine Bilirubin Ur Bilirubin Confirm Urine Urobilinogen Ur Leukocyte Esterase Urine RBC Urine WBC Ur Squamous Epith Cells Urine Bacteria Hyaline Casts Granular Casts Urine Mucus Ur Culture Indicated? COVID-19 PCR Microbiology results for his blood cultures are still pending. Chest x-ray was negative for pneumonia. CT angio of the chest was ordered due to elevated D-dimer and this was negative for pulmonary embolism. [facility] Medical History Hemochromatosis Surgical History Knee joint replacement status Family History (Updated 01/10/20 @ 02:18 by ANDERSON Leyva) Mother Tobacco use COPD (chronic obstructive pulmonary disease) Father Tobacco use CAD (coronary artery disease) Hx of heart bypass surgery COPD (chronic obstructive pulmonary disease) Brother Hemochromatosis Social History household members: spouse, children and other Smoking Status: Never smoker alcohol intake: current Assessment & Plan Post-op Postoperative Procedures: Left total knee replacement, January 08 2020 Postoperative day: 2 Postoperative status: doing well Postoperative status narrative: The patient is status post an outpatient total knee done on the 08 January 2020. He was admitted late last night due to night sweats, rigors and a temperature of a 103? F. A full fever workup including chest x-ray, blood cultures, urinalysis, COVID-19 test, and a CT angiogram of the chest for possible pulmonary embolism has been obtained. The r esults of all of these are essentially negative with the exception of the blood cultures which are still pending. The patient is currently afebrile and quite comfortable. Postoperative plan: routine post-op care and discharge Postoperative plan narrative: I have discussed the patient's care with him, the hospitalist and with his operating surgeon Dr. Saroj Staton. The patient would like to go home today and monitor this as an outpatient. Given his current clinical status and the negative results of his workup to date I think this is reasonable. He will be discharged from the hospitalist's service later today. If positive blood cultures arrive this will change the plan. Follow-up will be as scheduled for the total knee. I will be contacting the next on-call coverage orthopedist to ensure appropriate transfer of care. Time Spent With Patient Time with patient: 15-24 minutes
--- NOTE | 2020-01-10 09:15 | PM.DS.1 ---
History of Present Illness History of Present Illness Date Patient Seen: 01/10/20 Time Patient Seen: 09:15 Chief complaint: had a fever at home, recent surgery on L knee Narrative: As per ANDERSON Leyva: Jose Tapia is a 59 y.o. male with hemachromatosis who is POD#1 left total knee arthroplasty by Dr. Staton. He was uneventfully recovering at home when he developed a fever and rigors. Initially his temp was 100 degrees and when he took his temperature again, it estephania to 103. He contacted the on-call surgeon at [facility] and they instructed him to present to [facility] for further evaluation. He has been adhering to an ibuprofen and tylenol and oxycodone pain control regimen and takes aspirin 81 mg po bid for anticoagulation. He denies chest pain, shortness of breath, nausea or vomiting, abdominal or inguinal pain, or calf pain. Denies a history of a blood clot. In the ED, he presented with a temperature of 102.8. Currently his temp is 99.6 there is 150/88, heart rate 115, respiratory rate 18, oxygen saturation of 97% on room air, he weighs 109.5 kg with BMI 40.1. WBC is 8.9, RBC 4.15, hemoglobin 13.8, hematocrit 40.3, platelet count 159, he does have elevated neutrophils 8200, ESR is is elevated at 22, D-dimer is elevated at 2149, sodium 134, glucose 204, lactate 1.9, liver enzymes within normal limits, total CK is 249, CK-MB is 0.1, troponin is within normal limits, CRP is 20.8, procalcitonin was 0.32, UA is negative for UTI an COVID-19 PCR is negative. He was administered a dose of IV vancomycin and pipercillin tazobactam in the ED. Discharge Providers Provider Date of admission: 01/10/20 00:27 Discharge Date: 01/10/20 Consults: 01/10/20 00:37 Consult to Physician Routine Comment: Consulting Provider: Saroj Staton Reason for consultation: fever of unknown origin. s/p left total knee X 3 days Has provider been notified: Yes Discharge provider: Mikael Lloyd DO Summary Hospital Course Discharge Diagnosis: 1. Early postoperative fever of unknown origin, acute, present on admission, improved 2. Familial hemachromatosis, chronic Hospital Course: Jose Tapia is a 59 y.o. male with hemachromatosis who is now POD#2 s/p left total knee arthroplasty by Dr. Staton. He was uneventfully recovering at home when he developed a fever and rigors. He had a fever of 102.[address] in the emergency room. CT angiogram of his chest did not reveal any pulmonary embolism, his left knee incision appears well, and the patient has had no recurrence of his fever. Per Dr. Staton, after his right knee surgery he also noted chills on postoperative day 1 that no infectious causes were found. The morning after admission, the patient appeared very well, and had no fevers since his arrival to the emergency room. fever evaluation including CT angiogram Of his chest, and history and physical did not reveal a clear source. He does have splenic granulomas on CT imaging, although he denies fever, cough, or other symptoms of tuberculosis. I did send a quantiferon gold test for further evaluation. He had blood cultures drawn in the ER and the orthopedic service stated they will check up on these. He was discharged home and will follow up with orthopedic surgery as previously scheduled. Exam Vital Signs (past 8 hours): - 01/10/20 04:10 01/10/20 07:40 Temperature 98.6 F 97.8 F Pulse Rate 101 H Respiratory Rate 16 Blood Pressure 129/78 Pulse Oximetry 95 Oxygen Delivery Method Room Air Oxygen Flow Rate 0 Narrative Exam Narrative: Gen: Alert, oriented, morbidly obese 59 y.o. male, NAD HEENT: normocephalic, atraumatic, conjunctiva clear, sclera non-icteric, oral mucosa pink and moist Neck: supple, full ROM, no JVD, trachea is midline Resp: Lungs CTA, non-labored breathing CV: RRR, no murmur or rubs Abd: obese, distended, soft, non-tender, normoactive BTs Skin: no lesions or rashes, dry and intact Neuro: Alert and oriented X 4 w/no focal deficits. Speech clear and coherent. Extremities: L knee incision c/d/i with mild serosanguinous drainage, no erythema, warmth or inudration. Psyche: very pleasant, normal mood and affect. Objective Labs Result Diagrams: 01/10/20 05:20 01/10/20 05:20 Labs: Laboratory Results - last 24 hr 01/09/20 01/09/20 01/09/20 23:15 23:15 23:15 WBC 8.9 RBC 4.15 L Hgb 13.8 Hct 40.3 L MCV 97.1 MCH 33.2 MCHC 34.2 RDW 13.3 Plt Count 159 Neut % (Auto) 92.0 H Lymph % (Auto) 1.6 L [place] % (Auto) 4.5 Eos % (Auto) 1.5 L Baso % (Auto) 0.4 Neut # (Auto) 8200 H Lymph # (Auto) 100 L [place] # (Auto) 400 Eos # (Auto) 100 Baso # (Auto) 0 ESR D-Dimer Sodium 134 L Potassium 3.6 Chloride 104 Carbon Dioxide 25 BUN 15 Creatinine 1.02 Estimated GFR > 60.0 BUN/Creatinine Ratio 14.7 Glucose 204 H Lactate Calcium 9.0 Magnesium Total Bilirubin 1.0 AST 30 ALT 31 Alkaline Phosphatase 64 Total Creatine Kinase CK-MB (CK-2) CK-MB (CK-2) Rel Index Troponin I C-Reactive Protein Total Protein 7.3 Albumin 3.9 Globulin 3.4 Albumin/Globulin Ratio 1.1 Lipase Procalcitonin 0.32 Urine Color Urine Appearance Urine pH Ur Specific [place] Urine Protein Urine Glucose (UA) Urine Ketones Urine Occult Blood Urine Nitrate Urine Bilirubin Ur Bilirubin Confirm Urine Urobilinogen Ur Leukocyte Esterase Urine RBC Urine WBC Ur Squamous Epith Cells Urine Bacteria Hyaline Casts Granular Casts Urine Mucus Ur Culture Indicated? COVID-19 PCR 01/09/20 01/09/20 01/09/20 23:15 23:15 23:15 WBC RBC Hgb Hct MCV MCH MCHC RDW Plt Count Neut % (Auto) Lymph % (Auto) [place] % (Auto) Eos % (Auto) Baso % (Auto) Neut # (Auto) Lymph # (Auto) [place] # (Auto) Eos # (Auto) Baso # (Auto) ESR D-Dimer 2149 H Sodium Potassium Chloride Carbon Dioxide BUN Creatinine Estimated GFR BUN/Creatinine Ratio Glucose Lactate 1.9 Calcium Magnesium Total Bilirubin AST ALT Alkaline Phosphatase Total Creatine Kinase 249 H CK-MB (CK-2) < 0.22 CK-MB (CK-2) Rel Index 0.1 L Troponin I < 0.012 C-Reactive Protein Total Protein Albumin Globulin Albumin/Globulin Ratio Lipase Procalcitonin Urine Color Urine Appearance Urine pH Ur Specific [place] Urine Protein Urine Glucose (UA) Urine Ketones Urine Occult Blood Urine Nitrate Urine Bilirubin Ur Bilirubin Confirm Urine Urobilinogen Ur Leukocyte Esterase Urine RBC Urine WBC Ur Squamous Epith Cells Urine Bacteria Hyaline Casts Granular Casts Urine Mucus Ur Culture Indicated? COVID-19 PCR 01/09/20 01/09/20 01/09/20 23:15 23:15 23:30 WBC RBC Hgb Hct MCV MCH MCHC RDW Plt Count Neut % (Auto) Lymph % (Auto) [place] % (Auto) Eos % (Auto) Baso % (Auto) Neut # (Auto) Lymph # (Auto) [place] # (Auto) Eos # (Auto) Baso # (Auto) ESR 22 H D-Dimer Sodium Potassium Chloride Carbon Dioxide BUN Creatinine Estimated GFR BUN/Creatinine Ratio Glucose Lactate Calcium Magnesium Total Bilirubin AST ALT Alkaline Phosphatase Total Creatine Kinase CK-MB (CK-2) CK-MB (CK-2) Rel Index Troponin I C-Reactive Protein 20.8 H Total Protein Albumin Globulin Albumin/Globulin Ratio Lipase Procalcitonin Urine Color Urine Appearance Urine pH Ur Specific [place] Urine Protein Urine Glucose (UA) Urine Ketones Urine Occult Blood Urine Nitrate Urine Bilirubin Ur Bilirubin Confirm Urine Urobilinogen Ur Leukocyte Esterase Urine RBC Urine WBC Ur Squamous Epith Cells Urine Bacteria Hyaline Casts Granular Casts Urine Mucus Ur Culture Indicated? COVID-19 PCR Negative 01/09/20 01/10/20 01/10/20 23:35 05:20 05:20 WBC 10.5 RBC 3.84 L Hgb 12.9 L Hct 37.3 L MCV 97.3 MCH 33.6 MCHC 34.5 RDW 13.4 Plt Count 156 Neut % (Auto) 87.4 H Lymph % (Auto) 2.2 L [place] % (Auto) 7.2 Eos % (Auto) 1.8 L Baso % (Auto) 1.4 Neut # (Auto) 9200 H Lymph # (Auto) 200 L [place] # (Auto) 800 Eos # (Auto) 200 Baso # (Auto) 200 H ESR D-Dimer Sodium 132 L Potassium 3.9 Chloride 101 Carbon Dioxide 27 BUN 14 Creatinine 1.00 Estimated GFR > 60.0 BUN/Creatinine Ratio 14.0 Glucose 123 H Lactate Calcium 8.6 Magnesium 1.8 Total Bilirubin AST ALT Alkaline Phosphatase Total Creatine Kinase CK-MB (CK-2) CK-MB (CK-2) Rel Index Troponin I C-Reactive Protein Total Protein Albumin Globulin Albumin/Globulin Ratio Lipase Procalcitonin Urine Color [place] Urine Appearance Clear Urine pH 5.0 Ur Specific [place] 1.025 Urine Protein 2+ H Urine Glucose (UA) Negative Urine Ketones 1+ H Urine Occult Blood Trace-lysed Urine Nitrate Negative Urine Bilirubin 1+ H Ur Bilirubin Confirm Negative Urine Urobilinogen 0.2 Ur Leukocyte Esterase Negative Urine RBC None seen Urine WBC 1-5/hpf Ur Squamous Epith Cells 0-1 /hpf Urine Bacteria None seen Hyaline Casts 1-5/lpf Granular Casts 0-1/lpf Urine Mucus 4+ H Ur Culture Indicated? Cult not indicated COVID-19 PCR 01/10/20 01/10/20 01/10/20 05:20 05:20 05:20 WBC RBC Hgb Hct MCV MCH MCHC RDW Plt Count Neut % (Auto) Lymph % (Auto) [place] % (Auto) Eos % (Auto) Baso % (Auto) Neut # (Auto) Lymph # (Auto) [place] # (Auto) Eos # (Auto) Baso # (Auto) ESR D-Dimer Sodium Potassium Chloride Carbon Dioxide BUN Creatinine Estimated GFR BUN/Creatinine Ratio Glucose Lactate 1.2 Calcium Magnesium Total Bilirubin AST ALT Alkaline Phosphatase Total Creatine Kinase CK-MB (CK-2) CK-MB (CK-2) Rel Index Troponin I C-Reactive Protein Total Protein Albumin Globulin Albumin/Globulin Ratio Lipase 20 L Procalcitonin 1.29 H Urine Color Urine Appearance Urine pH Ur Specific [place] Urine Protein Urine Glucose (UA) Urine Ketones Urine Occult Blood Urine Nitrate Urine Bilirubin Ur Bilirubin Confirm Urine Urobilinogen Ur Leukocyte Esterase Urine RBC Urine WBC Ur Squamous Epith Cells Urine Bacteria Hyaline Casts Granular Casts Urine Mucus Ur Culture Indicated? COVID-19 [facility] Medical History Hemochromatosis Surgical History Knee joint replacement status Family History (Updated 01/10/20 @ 02:18 by ANDERSON Leyva) Mother Tobacco use COPD (chronic obstructive pulmonary disease) Father Tobacco use CAD (coronary artery disease) Hx of heart bypass surgery COPD (chronic obstructive pulmonary disease) Brother Hemochromatosis Social History household members: spouse, children and other Smoking Status: Never smoker alcohol intake: current Discharge Plan Discharge Plan Patient Disposition: Home Provider Discharge Comment: You were admitted to the hospital for a high fever.No infectious causes were found. Please follow up with your orthopedic surgeons as previously scheduled. No medication changes are recommended. Please continue your ibuprofen and tylenol as these can also reduce fevers. Discharge orders & Medications Prescriptions: Continued aspirin 81 mg Tablet 81 mg PO DAILY RF: 0 ibuprofen 200 mg Tablet 400 mg PO Q6H PRN (Reason: Pain, Moderate) RF: 0 acetaminophen 325 mg Tablet 650 mg PO Q6H PRN (Reason: Pain, Mild) RF: 0 Diet/Activity/Treatments Diet: Diet as Tolerated Activity: As tolerated Discharge Data Attending Provider: Lesa Vences
--- NOTE | 2020-01-10 09:58 | CM.DANOTE ---
DCP: Case received, EMR reviewed and met with patient. Introduced self and role. Was able to obtain information from patient regarding his surgical history, as well as baseline activity status before this hospitalization. DCP assessment completed with information currently available. Patient is a 59 year old male who admitted early this morning to the care of the hospitalist team. PCP: Dr. Madelyn Amato, [facility]. Payer: confirmed: Nickie KOTHARI. Patient came to the hospital via private vehicle secondary to having a fever. He had recent surgery at [facility] orthopedic surgery in [place] on Tuesday, for left total knee. Patient was concerned about developing fever, and possible infection. Patient has had some testing, no noted infectious markers, per lab results, and no PE, as well. Met with patient in his room, he has dressing to his left knee. Patient is alert and oriented, and was sitting up in his chair. He resides in [place] with his spouse, Evelyn. He is independent, he has a walker and cane for use at home. He mentioned that he purchased these supplies for his last surgery on his right knee. Patient indicated that he has a few stairs at home, but is able to navigate. He stated that he normally drives, but is not driving now, due to the pain medications that he takes. P: Patient is to be discharged home today, was discussed at team rounds. Orthopedics also consulted today as well. Tammie Trevino RN/Chain Tender
[2020-01-10 11:32] VITALS: BP 141/80; PULSE 102; RESP 16; TEMP 36.8; O2SAT 97
--- NOTE | 2020-01-10 11:57 | PC.NURSE ---
Discharge instructions and home care handouts reviewed with patient and his . They state understanding and have no further questions at this time. Aquacel dressing intact to left knee. patient ambulating with walker and standby assistance, using bathroom, tolerating meals. VSS. Denies cough, shortness of breath, fever or chills. Patient states he has follow up appointment scheduled. Patient instructed to call surgeon's office and professional sports scout surgeon if questions or concerns should arrive, including return or worsening of symptoms. Patient instructed to seek emergent care for emergency.
[2020-01-14 15:07] LABS: QuantiFERON Mitogen Value 2.14 IU/mL (.); QuantiFERON Nil Value 0.28 IU/mL (.); QuantiFERON TB Gold Plus Negative (Negative); QuantiFERON TB1 Ag Value 0.31 IU/mL (.); QuantiFERON TB2 Ag Value 0.29 IU/mL (.)
--- NOTE | 2020-01-22 17:00 | PC.NURSE ---
Late Entry; NS infusion initiated 01/08 at 23:51, complete 01/09 at 00:52. Vancomycin infusion initiated 01/09 at 00:19, complete at 01:49. NS infusion initiated 01/09 at 04:11, stopped per MD discharge order 09:17.
== END 2020-01-10 12:47 | disposition home or self-care (01) ==
LOC: ED 23:10 → AC 01-10 00:28
PROVIDERS: Internal Medicine; Admitting Provider Nurse Practitioner Family; Emergency Provider Emergency Medicine; Referring Provider Emergency Medicine; Visit Provider Nurse Practitioner Family
DX: R50.9 Fever, unspecified (principal); Z96.652 Presence of left artificial knee joint; Z98.890 Other specified postprocedural states; E83.119 Hemochromatosis, unspecified; Z11.59 Encounter for screening for other viral diseases
CPT/HCPCS: 36415; 71045; 71275; 80048; 80053; 81001; 82550; 82553; 83605; 83690; 83735; 84145; 84484; 85025; 85379; 85651; 86140; 86480; 87040; 87635; 96361; 96365; 96366; 96367; 99282; 99284; G0378; J2543; Q9967